=== PATIENT | female | born 1960 | race Caucasian/White ===

== ENCOUNTER 2023-03-22 13:00 | Outpatient (RCR) | payer OTHER, SELFPAY | END 2023-04-19 16:05 | disposition home or self-care (01) | PROVIDERS: PCP Family Medicine; Visit Provider Student in an Organized Health Care Education/Training Program | DX: M25.562 Pain in left knee (principal); W19.XXXA Unspecified fall, initial encounter; Z51.89 Encounter for other specified aftercare | CPT/HCPCS: 97035; 97110; 97112; 97140; 97161 ==

== ENCOUNTER 2023-12-22 10:35 | Outpatient (CLI) | payer OTHER, SELFPAY ==
--- OUTSIDE RECORDS SUMMARY | 2023-12-22 10:38 | XMS_ITS | Clinical Summary ---
Author Organization [facility] Address [place], [place] [address] Care Team Providers Care Slurry Blender Name Role Phone Bryanna Deng MD Primary Care Provider [phone] Allergies Active Allergy Reactions Criticality Noted Date Comments Latex Rash,Erythema 04/02/2010 Medications Medication Sig Dispensed Refills Start Date End Date Status multivitamin (MVI) tablet Take 1 tablet by mouth once daily. 0 02/24/2016 Active fluticasone (50 mcg per actuation) nasal solution (FLONASE)Indications:A llergic rhinitis due to pollen, unspecified seasonality Inhale 2 Sprays to both nostrils once daily. 48 mL 2 09/08/2021 Active cetirizine (ZYRTEC) 10 mg tablet Take 1 Tablet (10 mg) by mouth once daily. 0 09/29/2021 Active CPAPIndications:ABIGAIL (obstructive sleep apnea) CPAP machine for home use at pressure 5-15 cmw, full face mask x1/3month with a full face cushion x1/mo 1 Each 11 02/16/2023 Active Qvar RediHaler 40 mcg/actuation HFA inhaler Inhale 1 Puff by mouth two times daily. 10/03/2023 Active hydroCHLOROthiazide 25 mg tabletIndications:Prim lissett hypertension Take 1 Tablet (25 mg) by mouth once daily. 90 Tablet 3 10/19/2023 Active montelukast (SINGULAIR) 10 mg tabletIndications:Post -nasal drip Take 1 Tablet (10 mg) by mouth at bedtime. 90 Tablet 3 10/19/2023 Active rosuvastatin (CRESTOR) 20 mg tabletIndications:Mary nary artery calcification Take 1 Tablet (20 mg) by mouth at bedtime. 90 Tablet 3 11/30/2023 Active aspirin (ECOTRIN) 81 mg enteric coated tabletIndications:Mary nary artery calcification Take 1 Tablet (81 mg) by mouth once daily with a meal. 90 Tablet 3 11/30/2023 Active Active Problems Problem Noted Date Diagnosed Date Asymptomatic gallstones 11/30/2023 Angiomyolipoma of left kidney 11/30/2023 Thyroid nodule 11/30/2023 Coronary artery calcification 11/30/2023 ABIGAIL 11/08/2022 AHI-18 12/29/2022 Actinic keratosis 09/15/2022 Wynn angioma 09/15/2022 SK (seborrheic keratosis) 09/15/2022 Primary osteoarthritis of right knee 02/10/2022 Overview: Jan 2022: Dr. Melissa did right knee cortisone injection. Breast mass, right 02/17/2017 Normal cardiac stress test 11/29/2014 Overview: 11/29/2014 Hypertension 01/30/2014 L5-S1 disk protrusion 05/17/2013 Family history of malignant neoplasm of gastrointestinal tract 09/03/2011 Overview: Colonoscopy 08/2011 normal repeat in 5 years Colonoscopy 08/2016 polyp repeat in 5 years Colonoscopy 01/2022 normal, repeat in 5 years Achilles tendonitis 02/26/2010 Primary osteoarthritis of both first carpometaca rpal joints 02/26/2010 Overview: 2011: [facility] joint injections by Dr. Whitten. June 2015: bilateral [facility] Joint injections by Dr. Melissa. Feb 2016: repeat bilateral [facility] Joint injections: bilateral 90 % improvement at 2 weeks. Pain benefit for right lasted over 9 months. Left lasted 6-7 months. November 2015: repeat left only [facility] Joint injection. November 2016: Repeat left [facility] joint injection: very good benefit great than 2 weeks post injection. Jan 2017: Repeat Right [facility] Joint thumb injection. July 2017: Repeat left [facility] joint injection. Hand pain 02/17/2009 Esophageal reflux 08/22/2008 Other acne 07/22/2006 Overview: sees Dr. Stearns Resolved Problems Problem Noted Date Diagnosed Date Resolved Date Back pain 02/17/2009 05/17/2013 Plantar fascial fibromatosis 02/01/2008 02/26/2010 Encounters Date Type Department Care Team Description 12/02/2023 9:45 AM CDT Ancillary Procedure [facility] [address] [facility] [place] [address] 12/02/2023 Telephone [facility] [address] [place] [address] Bryanna Deng MD Referral 12/01/2023 Travel 11/30/2023 1:10 PM CDT Office Visit [facility] [address] [place] [address] Bryanna Deng MD Results 11/30/2023 Travel 11/26/2023 Telephone [facility] [address] [place] [address] Bryanna Deng MD 11/08/2023 7:30 AM CDT Ancillary Procedure [facility] [address] [place] [address] 11/08/2023 Telephone [facility] [address] [place] [address] Bryanna Deng MD Follow Up 11/08/2023 Travel 10/19/2023 7:55 AM CDT Office Visit [facility] [address] [place] [address] Bryanna Deng MD Derm Problem (Mole on right side, bra line) 10/19/2023 Travel 10/06/2023 Transcribe Orders [facility] [address] [place] [address] Gregg Kearns MD from Last 3 Months Immunizations Name Administration Dates Next Due COVID-19 vaccine (Moderna 100mcg/0.5mL) MIMI GILES 10/08/2021,03/31/2021,08/29/2020,2020 COVID-19 vaccine (Moderna 50mcg/0.5mL) 12YO+ BIVALENT PF, MDV 03/04/2022 Influenza, IIV3 (Age >=3 years) 02/05/2013,04/09,01/29/2010 Influenza, IIV4 02/07/2023, 2,01/27/2021,2019,02/15/2019,02/13/2018,02/01/2017,1 ,02/25/2015 Td, Preservative Free (age > = 7 Years) 02/07/2023,10/28/2005 Tdap 11/21/2012 Zoster (Shingrix-RZV, recombinant) 12/08/2018, Family History Medical History Relation Name Comments Cancer Father colon and prost ate Diabetes Father Hypertension Father Cancer-breast Maternal Aunt several aunts Cancer-breast Maternal Grandmother Cancer Mother skin Heart Disease Mother chf; mitral va lve replaced Hypertension Mother Other Mother Parkinson's Psychiatric illness Mother depressi on Stroke Mother Cancer Paternal Uncle uncle-colon Cancer-breast Sister Relation Name Status Comments Father Alive Maternal Aunt Maternal Grandmother Mother (Age 66) medical co mplication with surgery Paternal Uncle Sister Social History Tobacco Use Types Packs/Day Years Used Date Smoking Tobacco: Former Cigarettes 0.5 7 0 05/16/1973 - 05/16/1980 Smokeless Tobacco: Never Tobacco Cessation:Counseling Given: Yes Alcohol Use Standard Drinks/Week Comments Yes 0 (1 standard drink = 0.6 oz pur e alcohol) daily 1-2 Humiliation, Afraid, Rape, and Kick questionnair e Answer Date Recorded Fear of Current or Ex-Partner No Emotionally Abused No 10/03/2018 Physically Abused No 10/03/2018 Sexually Abused No 10/03/2018 PHQ-2 Answer Date Recorded PHQ-2 TOTAL SCORE 0 12/17/2021 [facility] [employer] [facility] [employer] - Occupational Stress Questionnaire Answer Date Recorded Feeling of Stress Not at all 10/03/2018 Exercise Vital Sign Answer Date Recorde d Days of Exercise per Week 0 days 2018 Minutes of Exercise per Session 0 min 10/03/2018 Social Connections Answer Date Recorded Frequency of Communication with Friends and Fami ly 0 02/06/2023 Financial Resource Strain Answer Date R ecorded Difficulty of Paying Living Expenses 3 02/06/2023 Difficulty of Paying Living Expenses Not on file 02/06/2023 Food Insecurity Answer Date Recorded Worried About Running Out of Food in the Last Ye ar 1 02/06/2023 Transportation Needs Answer Date Record ed Lack of Transportation (Medical) 1 02/06/2023 Housing Stability Answer Date Recorded Unable to Pay for Housing in the Last Year 1 02/06/2023 Sex and Gender Information Value Date Recorded Sex Assigned at Not on file Gender Identity Not on file Sexual Orientation Not on file Obstetrics History Para Term AB IAB SAB Ectopic Multiple Livin g Live Births 4 4 Date Outcome GA Total Labor Labor/2nd/3rd Weight Sex Type Anes PTL Araceli A1 A5 Name Clin Last Filed Vital Signs Vital Sign Reading Time Taken Comments Blood Pressure 118/82 11/30/2023 1:07 PM CDT Pulse 76 11/30/2023 1:07 PM CDT Temperature 37.3 ??C (99.1 ??F) 11/21/2021 9:18 AM CD T Respiratory Rate 18 11/21/2021 9:18 AM CDT Oxygen Saturation 97% 11/30/2023 1:07 PM CDT Inhaled Oxygen Concentration - - Weight 100.2 kg (220 lb 12.8 oz) 11/30/2023 1:07 PM CDT Height 165.1 cm (5' 5) 12/28/2022 9:22 AM CDT Body Mass Index 36.74 12/28/2022 9:22 AM CDT Plan of Treatment Upcoming Encounters Date Type Department Care Team (Late st Contact Info) Description 01/23/2024 3:00 PM CDT Office Visit [facility] [address] [place] [phone] Gregg Kearns MD [address] [place] [id number] Health Maintenance Due Date Last Done Comments Depression screening for age 12+ 12/17/2022 12/17/2021, 12/31/2020, 10/04/2018, Additional history exists BMI (ht and wt on same day) for age 18+ 12/29/2023 12/28/2022, 10/26/2022, 09/15/2022, Additional history exists Influenza for age 50-64 01/15/2024 02/08/20 23, 03/04/2022, 01/27/2021, Additional history exists Mammogram for age 45-75 02/10/2024 02/10/20 23, 01/07/2022, 01/02/2021, Additional history exists Colonoscopy through age 75 02/04/202702/04, 02/04/2022, 02/04/2022, Additional history exists Lipids for age 45-75 11/29/2028 11/30/2023, 09/15/2022, 09/08/2021, Additional history exists Tetanus booster 02/07/2033 02/07/2023, 07/0 01/2013, 10/28/2005 Tdap Completed 11/21/2012 Hepatitis C screening for age 18-79 Completed 08/09/2016 Zoster (shingles) series for age 50+ Completed 12/08/2018, 10/03/2018 HIV for age 15-65 Completed 09/15/2022 COVID-19 vaccine series Completed 03/05/20, 03/04/2022, 10/08/2021, Additional history exists Pneumococcal series for age 6-64 Aged Out No longer eligible based on patient's age to complete this topic Procedures Procedure Name Priority Date/Time Associated Diagnosis Comments US THYROID/PARATHYROID Routine 12/02/2023 9:50 AM CDT Thyroid nodule LIPID PANEL W REFLEX MEASURED LDL Routine 11/30/2023 1:50 PM CDT Coronary artery calcification TSH Routine 11/30/2023 1:50 PM CDT Thyroid nodule CT CHEST WO Routine 11/08/2023 7:35 AM CDT Chronic cough URINALYSIS MICROSCOPIC Routine 10/19/2023 8:45 AM CDT Asymptomatic microscopic hematuria UA W/ SEDIMENT EXAM REFLEXED PER CRITERIA Routine 10/19/2023 8:45 AM CDT Asymptomatic microscopic hematuria HEMOGLOBIN A1C SCREENING Routine 10/19/2023 8:41 AM CDT Prediabetes BASIC METABOLIC PANEL Routine 10/19/2023 8:41 AM CDT Hypertension PATH TISSUE EXAM Routine 10/19/2023 8:21 AM CDT Non-healing skin lesion XR MAMMO BILAT SCREENING Routine 02/09/2023 8:21 AM CDT Visit for screening mammogram LC HIV-1/O/2, 4TH GENERATION Routine 09/15/2022 8:04 AM CDT Screening for HIV (human immunodeficiency virus) COLONOSCOPY 02/04/2022 8:01 AM CDT History of colon polyps Polyp of colon, unspecified part of colon, unspecified type Family history of colon cancer ANTI HCV Routine 08/09/2016 8:42 AM CDT Need for hepatitis C screening test from Last 3 Months or Most Recently Relevant to Health Maintenance Results * US THYROID/PARATHYROID (12/02/2023 9:50 AM CDT) Anatomical Region Laterality Modality THYROID Ultrasound 12/02/2023 2:06 PM CDT Impressions 12/02/2023 2:06 PM CDT 5.1 cm TR 4 nodule right thyroid lobe. FNA recommended. Dictated by Rashaun Wing MD @ 12/02/2023 2:06:28 PM (Electronically Signed) Narrative 12/02/2023 2:06 PM CDT For Patients: ??As a result of the 21st Century Cures Act, medical imaging exams and procedure reports are released immediately into your electronic medical record. ??You may view this report before your referring provider. ??If you have questions, please contact your health care provider. INDICATION: Thyroid nodule COMPARISON: CT chest 11/08/2023 TECHNIQUE: Platt scale and color Doppler images were acquired of the thyroid gland. FINDINGS: Isthmus measures 4.7 millimeters. Solid slightly heterogeneous nodule right thyroid lobe measures 5.1 x 4.1 x 3.1 cm. The right lobe measures 6.6 x 3.6 x 4.1 cm and the left lobe measures 5.8 x 2.3 x 1.8 cm in size. The color Doppler images demonstrate normal vascularity. There is no evidence of cervical lymphadenopathy or parathyroid mass. Procedure Note Rashaun Wing MD - 12/02/2023 For Patients: As a result of the Cures Act, medical imagingexams and procedure reports are released immediately into your electronicmedical record. You may view this report before your referring provider.If you have questions, please contact your health care provider. INDICATION: Thyroid nodule COMPARISON: CT chest 11/08/2023 TECHNIQUE: Platt scale and color Doppler images were acquired of the thyroid gland. FINDINGS: Isthmus measures 4.7 millimeters. Solid slightly heterogeneous noduleright thyroid lobe measures 5.1 x 4.1 x 3.1 cm. The right lobe measures6.6 x 3.6 x 4.1 cm and the left lobe measures 5.8 x 2.3 x 1.8 cm in size.The color Doppler images demonstrate normal vascularity. There is noevidence of cervical lymphadenopathy or parathyroid mass. IMPRESSION: 5.1 cm TR 4 nodule right thyroid lobe. FNA recommended. Dictated by Rashaun Wing MD @ 12/02/2023 2:06:28 PM (Electronically Signed) Bryanna Deng MD * (ABNORMAL) LIPID PANEL W REFLEX MEASURED LDL (11/30/2023 1:50 PM CDT) CHOLESTEROL,TOTAL 251(H) 100 - 199 mg/dL 12/01/2023 4:00 AM CDT [facility] [employer] Comment: Cholesterol, Total Reference Ranges Desirable <200 mg/dL Borderline 200-239 mg/dL High >=240 mg/dL TRIGLYCERIDES 163(H) <150 mg/dL 12/01/2023 4:00 AM CDT [facility] HDL CHOLESTEROL 67 >40 mg/dL 4:00 AM CDT [facility] NON-HDL CHOLESTEROL 184(H) <145 mg/dl 12/01/2023 4:00 AM CDT [facility] CHOL/HDL RATIO 3.75 <4.50 12/01/2023 4:00 AM CDT [facility] LDL CHOLESTEROL 151(H) <=130 mg/dL 12/01/2023 4:00 AM CDT [facility] VLDL CHOLESTEROL 33(H) <=30 mg/dL 12/01/2023 4:00 AM CDT [facility] PROVIDER ORDERED STATUS RANDOM 12/01/2023 4:00 AM CDT [facility] Blood BLOOD SPECIMEN / Unknown Venipuncture / Unknown 11/30/2023 1:50 PM CDT 11/30/2023 1:52 PM CDT Bryanna Deng MD CHEMISTRY Performing Organization Address [facility] de Phone Number [facility] [address] [place] [id number], [place] * TSH (11/30/2023 1:50 PM CDT) TSH 2.64 0.27 - 4.20 uIU/mL 12/01/2023 4:00 AM CDT [facility] Blood BLOOD SPECIMEN / Unknown Venipuncture / Unknown 11/30/2023 1:50 PM CDT 11/30/2023 1:52 PM CDT Narrative [facility] - 12/01/2023 4:00 AM CDT In Adults, TSH values between 5.00 and 10.00 uIU/ml do not necessarily indicate the presence of Hypothyroidism. Correlation with clinical findings such as presence of goiter and/or Thyroperoxidase (TPO) Antibody may be helpful. For more information please refer to [place] 2004; 291: 228-238. Bryanna Deng MD CHEMISTRY Performing Organization Address [facility] Co de Phone Number [facility] [address] [place] [phone], [place] * CT CHEST WO (11/08/2023 7:35 AM CDT) Anatomical Region Laterality Modality CHEST, THORAX, HEART Computed To mography 11/08/2023 12:0 6 PM CDT Impressions 11/08/2023 12:06 PM CDT 1. No acute findings. 2. Few small sub 6 millimeter calcified noncalcified pulmonary nodules. If the patient is high risk for lung cancer, an optional 12 month follow-up CT may be performed per Fleischner society guidelines. 3. Mild coronary artery calcification. 4. Enlarged right thyroid lobe with possible nodules measuring up to 3 centimeters. Recommend further assessment with thyroid ultrasound. 5. Small layering gallstones or hyperdense gallbladder sludge. 6. 11 millimeter left renal angiomyolipoma. Please note that all CT scans at this facility use dose modulation, iterative reconstruction, and/or weight-based dosing when appropriate to reduce radiation dose to as low as reasonably achievable. Dictated by Iam Hayes MD @ 11/08/2023 12:06:16 PM (Electronically Signed) Narrative 11/08/2023 12:06 PM CDT For Patients: ??As a result of the Century Cures Act, medical imaging exams and procedure reports are released immediately into your electronic medical record. ??You may view this report before your referring provider. ??If you have questions, please contact your health care provider. INDICATION: Chronic cough. TECHNIQUE: CT chest without contrast. COMPARISON: None. FINDINGS: Lungs and pleura: Scattered sub 6 millimeter calcified noncalcified pulmonary nodules. For example, 4 millimeter right upper lobe calcified granuloma (series 10, image 67) and 5 millimeter average diameter triangular left lower lobe juxta fissural nodule (series 10 image 52). ??No pleural effusions, pleural thickening, or pneumothorax. Heart and vasculature: Heart size is normal. Thoracic aorta and pulmonary artery are normal in caliber. Mild coronary artery calcification. Lymph nodes/mediastinum: No mediastinal, hilar, or axillary adenopathy. Neck base: Enlarged right thyroid gland with possible nodules measuring up to 3 centimeters Chest wall: No masses. Upper abdomen: Small layering gallstones or hyperdense sludge. 11 millimeter oval fat density lesion in the upper pole of the left kidney, compatible with an angiomyolipoma. Bones: Mild thoracic spondylosis. Procedure Note Iam Hayes MD - 11/08/2023 For Patients: As a result of the 21st Century Cures Act, medical imagingexams and procedure reports are released immediately into your electronicmedical record. You may view this report before your referring provider.If you have questions, please contact your health care provider. INDICATION: Chronic cough. TECHNIQUE: CT chest without contrast. COMPARISON: None. FINDINGS: Lungs and pleura: Scattered sub 6 millimeter calcified noncalcifiedpulmonary nodules. For example, 4 millimeter right upper lobe calcifiedgranuloma (series 10, image 67) and 5 millimeter average diametertriangular left lower lobe juxta fissural nodule (series 10 image 52). Nopleural effusions, pleural thickening, or pneumothorax. Heart and vasculature: Heart size is normal. Thoracic aorta and pulmonaryartery are normal in caliber. Mild coronary artery calcification. Lymph nodes/mediastinum: No mediastinal, hilar, or axillary adenopathy. Neck base: Enlarged right thyroid gland with possible nodules measuring upto 3 centimeters Chest wall: No masses. Upper abdomen: Small layering gallstones or hyperdense sludge. 11millimeter oval fat density lesion in the upper pole of the left kidney,compatible with an angiomyolipoma. Bones: Mild thoracic spondylosis. IMPRESSION: 1. No acute findings. 2. Few small sub 6 millimeter calcified noncalcified pulmonary nodules. Ifthe patient is high risk for lung cancer, an optional 12 month follow-upCT may be performed per Fleischner society guidelines. 3. Mild coronary artery calcification. 4. Enlarged right thyroid lobe with possible nodules measuring up to 3centimeters. Recommend further assessment with thyroid ultrasound. 5. Small layering gallstones or hyperdense gallbladder sludge. 6. 11 millimeter left renal angiomyolipoma. Please note that all CT scans at this facility use dose modulation,iterative reconstruction, and/or weight-based dosing when appropriate toreduce radiation dose to as low as reasonably achievable. Dictated by Iam Hayes MD @ 11/08/2023 12:06:16 PM (Electronically Signed) Gregg Kearns MD CT * URINALYSIS MICROSCOPIC (10/19/2023 8:45 AM CDT) RBC 0-2 0-2, None Seen /HPF 10/19/2023 9:16 AM CDT [facility] WBC 0-2 0-2, 3-5, None Seen /HPF 10/19/2023 9:16 AM CDT [facility] BACTERIA Few None Seen, Rare, Few Bacteria/H PF 10/19/2023 9:16 AM CDT [facility] EPITHELIAL CELLS Few None Seen, Few Epi/HPF 10/19/2023 9:16 AM CDT [facility] Urine URINE SPECIMEN / Unknown Non-Blood / Unknown 10/19/2023 8:45 AM CDT 10/19/2023 8:45 AM CDT Bryanna Deng MD URINE [facility] [address] [place] [address], * (ABNORMAL) UA W/ SEDIMENT EXAM REFLEXED PER CRITERIA (10/19/2023 8:45 AM CDT) COLOR Yellow Yellow Color 10/19/2023 9:16 AM CDT [facility] CLARITY Clear Clear Clarity 10/19/2023 9:16 AM CDT [facility] SPECIFIC GRAVITY,URINE 1.020 1.010, 1.015, 1.020, 1.025 10/19/2023 9:16 AM CDT [facility] PH,URINE 5.5 6.0, 7.0, 8.0, 5.5, 6.5, 7.5, 8.5 10/19/2023 9:16 AM CDT [facility] UROBILINOGEN, QUALITATIVE Normal Normal EU/dl 10/19/2023 9:16 AM CDT [facility] PROTEIN, URINE Negative Negative mg/dL 10/19/2023 9:16 AM CDT [facility] GLUCOSE, URINE Negative Negative mg/dL 10/19/2023 9:16 AM CDT [facility] KETONES,URINE Negative Negative mg/dL 10/19/2023 9:16 AM CDT [facility] BILIRUBIN,URI NE Negative Negative 10/19/2023 9:16 AM CDT [facility] OCCULT BLOOD,URINE Trace(A) Negative 10/19/2023 9:16 AM CDT [facility] NITRITE Negative Negative 10/19/2023 9:16 AM CDT [facility] LEUKOCYTE ESTERASE Trace(A) Negative 10/19/2023 9:16 AM CDT [facility] Urine URINE SPECIMEN / Unknown Non-Blood / Unknown 10/19/2023 8:45 AM CDT 10/19/2023 8:45 AM CDT Bryanna Deng MD URINE Performing Organization Address City/[facility]/ZIP Co de Phone Number [facility] [address] [place] [address], [place] [phone] * HEMOGLOBIN A1C SCREENING (10/19/2023 8:41 AM CDT) HEMOGLOBIN A1C SCREENING 5.4 <=6.4 % 10/19/2023 5:12 PM CDT [facility] Blood BLOOD SPECIMEN / Unknown Venipuncture / Unknown 10/19/2023 8:41 AM CDT 10/19/2023 8:42 AM CDT Narrative [facility] - 10/19/2023 5:12 PM CDT ? (<5.7%) ?Normal ? (5.7% to 6.4%) ? Indicates prediabetes ? (>=6.5%) ? Confirms diabetes Falsely low levels may be seen with: Recent Transfusion, Recent Significant Blood Loss, Hemolytic Diseases, or Falsely elevated levels may be seen with: Untreated Anemias, Splenectomy Bryanna Deng MD CHEMISTRY [facility] [address] [place] [id number], [place] * (ABNORMAL) BASIC METABOLIC PANEL (10/19/2023 8:41 AM CDT) SODIUM 139 136 - 145 mmol/L 10/19/2023 4:00 PM T [facility] POTASSIUM 4.3 3.5 - 5.1 mmol/L 10/19/2023 4:00 PM T [facility] CHLORIDE 101 98 - 107 mmol/L 10/19/2023 4:00 PM T [facility] CO2,TOTAL 27 22 - 29 mmol/L 10/19/2023 4:00 PM T [facility] ANION GAP 11 5 - 18 10/19/2023 4:00 PM T [facility] GLUCOSE 102(H) 70 - 99 mg/dL 10/19/2023 4:00 PM T [facility] CALCIUM 9.9 8.8 - 10.2 mg/dL 10/19/2023 4:00 PM T [facility] BUN 14 8 - 23 mg/dL 10/19/2023 4:00 PM T [facility] CREATININE 0.91(H) 0.50 - 0.90 mg/dL 10/19/2023 4:00 PM T [facility] BUN/CREAT RATIO 15 10 - 20 4:00 PM T [facility] eGFR 71(L) >90 mL/min/1.7 3m2 10/19/2023 4:00 PM [facility] Comment:As of 2021, eG FR is calculated by the CKD-EPI creatinine equation without race adjustment. ??eGFR can be influenced by muscle mass, exercise, and diet. ??The reported eGFR is an estimation only and is only applicable if the renal function is stable. Blood BLOOD SPECIMEN / Unknown Venipuncture / Unknown 10/19/2023 8:41 AM CDT 10/19/2023 8:42 AM CDT Bryanna Deng MD CHEMISTRY [facility] [address] [place] [address], * PATH TISSUE EXAM (10/19/2023 8:21 AM CDT) Case Report Pathology Report ?Case: [id number] ? Authorizing Provider: ??Bryanna Deng MD ? Collected: ? 10/19/2023 0821 ? Ordering Location: ? [facility] ?? Received: ?10/19/2023 0934 ? Clinic ? Pathologist: ? Huan Renteria MD ? Specimen: ?Skin Shave, skin shave pigmented open lesion on right lateral chest, 6 mm ? 10/20/2023 12:36 PM CDT [facility] Final Diagnosis SKIN, RIGHT LATERAL CHEST, BIOPSY: 1. Seborrheic keratosis 2. Negative for malignancy 10/20/2023 12:36 PM CDT [facility] Clinical Information Skin shave pigmented open lesion on right lateral chest, 6 mm. 10/20/2023 12:36 PM CDT [facility] Gross Description A) Received in formalin, labeled with the patient's name and date of , is a 0.8 x 0.7 x 0.1 cm skin biopsy. There is a 0.7 x 0.6 cm slightly raised variegated brown lesion. The specimen is inked red, trisected and entirely submitted in one cassette. EKW 10/19/2023 10/20/2023 12:36 PM CDT [facility] Microscopic Description The final diagnosis is based on microscopic examination of appropriate sections of all specimens. The epidermis shows acanthosis and hyperkeratosis . No significant atypia is seen. The presence of ??red ink is confirmed on tissue sections. 10/20/2023 12:36 PM CDT [facility] Additional Information Interpreted at [facility] - [address] [facility] [address], [place] [address] 10/20/2023 12:36 PM CDT [facility] Other SPECIMEN FROM SKIN / Unknown Non-Blood / Unknown 10/19/2023 8:21 AM CDT 10/19/2023 9:34 AM CDT Bryanna Deng MD PATHOLOGY/CYTOLOGY Performing Organization Address City/State/[facility] Co de Phone Number [facility] [address] [place] [address], * XR MAMMO BILAT SCREENING (02/09/2023 8:21 AM CDT) Anatomical Region Laterality Modality BREASTS, Breast Left, Breast Right Bilateral Mammography Impressions 02/09/2023 2:13 PM CDT ??There is no radiographic evidence for malignancy. ??Recommend annual mammograms. MAMMOGRAM ASSESSMENT: ??ACR 1 Negative PATIENTS: You will also receive a letter with your examination results in an easy to read format. ??If you have questions about your results, please contact your referring provider. Narrative 02/09/2023 2:13 PM CDT For Patients: As a result of the Century Cures Act, medical imaging exams and procedure reports are released immediately into your electronic medical record. You may view this report before your referring provider. If you have questions, please contact your health care provider. XR MAMMO BILAT SCREENING [[id number]] CLINICAL HISTORY: ??This is an asymptomatic 62 y.o. patient. INDICATION FOR EXAM: Mammogram Screening. TECHNIQUE: CC & MLO views were obtained. ??This study was evaluated with the assistance of Computer-Aided Detection. COMPARISON FILM: Yes 01/07/22 [employer] [facility] 01/02/21 [facility] FINDINGS: ??The breasts have scattered areas of fibroglandular density. There are no dominant masses, suspicious micro calcifications or areas of architectural distortion. Bryanna Deng MD MAMMO * LC HIV-1/O/2, 4TH GENERATION (09/15/2022 8:04 AM CDT) HIV Scr 4th Gen Non Reactive Non Reactive 09/18/2022 4:08 AM CDT [facility] Comment: HIV Negative HIV-1/HIV-2 antibodies and HIV-1 p24 antigen were NOT detected. There is no laboratory evidence of HIV infection. Blood BLOOD SPECIMEN / Unknown Venipuncture / Unknown 09/15/2022 8:04 AM CDT 09/15/2022 8:05 AM CDT Narrative [facility] - 09/18/2022 4:08 AM CDT Performed at: ??01 - [facility] [address] [place] [address], [place], [place] ??[id number] Crop Quantitative Geneticist: Beto Zee MD, Phone: ??[phone] Bryanna Deng MD LABORATORY [facility]) [facility] [place] [address], * COLONOSCOPY (02/04/2022 8:01 AM CDT) 02/04/2022 8:01 AM CDT Narrative Transcriptions Sergey Lawrence MD - 02/04/2022 9:39 AM CDT Patient Name: Milady Tilley Procedure Date: 02/04/2022 Gender: Female Date of : 1960 Admit Type: Outpatient Procedure: Colonoscopy Proceduralist: Sergey Lawrence MD , Mei Cox (Nurse), Alison Gill, RN (Nurse) Referring MD: Bryanna Deng Indications/Pre-Op Diagnosis: High risk colon cancer surveillance:Personal history of adenoma less than 10 mm in size, Family history of colon cancer in a first-degree relative before age 60 years Medications: Fentanyl 100 micrograms IV, Midazolam 3 mgIV, The level of sedation administered wasmoderate Procedure Description: The patient had risks, benefits and alternatives explained to andgave informed consent. The patient had a stable cardiopulmonary status and judged an adequate candidate for conscious sedation. The Colonoscope was passed through the anus and advanced to thececum, identified by appendiceal orifice and ileocecal valve. Thecolonoscopy was performed without difficulty. The patient tolerated the procedure well. The quality of the bowel preparation was good. The ileocecal valve, appendiceal orifice, and rectum were photographed. Complications: No immediate complications. Estimated Blood Loss & Specimen: Estimated blood loss: none. Specimen collected - Yes and sent to Laboratory Findings: The perianal and digital rectal examinations were normal. A 3 mm polyp was found in the sigmoid colon. The polyp was semi-pedunculated. The polyp was removed with a cold snare. Resection and retrieval were complete. The exam was otherwise without abnormality. Impressions/Post-Op Diagnosis: - One 3 mm polyp in the sigmoid colon, removed with a cold snare. Resected and retrieved. - The examination was otherwise normal. Recommendation: - Patient has a contact number available for emergencies. The signsand symptoms of potential delayed complications were discussed with the patient. Return to normal activities tomorrow. Written discharge instructions were provided to the patient. - Resume previous diet. - Continue present medications. - Await pathology results. - Repeat colonoscopy in 5 years for surveillance. Moderate Sedation: A time out was performed before the procedure. Moderate (conscious) sedation was administered by the endoscopy nurse and supervised bythe endoscopist. The following parameters were monitored: oxygensaturation, heart rate, blood pressure, EKG, CO2, respiratory rate, adequacy of pulmonary ventilation and reponse to care. Please refer to the patient's medical record flowsheets and nursing notes for moderate sedation details. Total physician intraservice time was 16 minutes. Sergey Lawrence MD 02/04/2022 9:39:03 AM This report has been signed electronically. Note Initiated On: 02/04/2022 8:01 AM Procedure Code(s): --- Professional --- 67092, Colonoscopy, flexible; with removalof tumor(s), polyp(s), or other lesion(s) bysnare technique Diagnosis Code(s): --- Professional --- Z86.010, Personal history of colonicpolyps D12.5, Benign neoplasm of sigmoid colon Z80.0, Family history of malignant neoplasmof digestive organs CPT copyright 2020 [employer]. All rights reserved. The codes documented in this report are preliminary and upon overedge machine operator reviewmay be revised to meet current compliance requirements. Scope In: 9:19:27 AM Scope Withdrawal Time 0 hours 9 minutes 13 seconds Scope Out: 9:33:24 AM Sergey Lawrence MD PROCEDURE ORD * ANTI HCV [72752.2] (08/09/2016 8:42 AM CDT) HEPATITIS C ANTIBODY Non-Reacti ve Non-Reacti ve 08/09/2016 3:29 PM CDT [facility] Blood BLOOD SPECIMEN / Unknown Venipuncture / Unknown 08/09/2016 8:42 AM CDT 08/09/2016 8:42 AM CDT Narrative [facility] - 08/09/2016 3:29 PM CDT Antibodies to HCV not detected; does not exclude the possibility of exposure to HCV. Tami Bernabe MD SEND OUTS [facility] [address] [place] [address], [place] from Last 3 Months or Most Recently Relevant to Health Maintenance Advance Directives Documents on File Type Date Recorded Patient Service Loss Control Consultant Expl anation Power of Pelt Shearer 11/18/2020 JESUS SCHWARTZ AND KAM TILLEY, 11/18/2020 Care Teams Slurry Blender Relationship Specialty Start Date End Date Bryanna Deng MD [address] [place], [place] [id number] PCP - General Family Practice 02/17/17
--- NOTE | 2023-12-22 11:15 | CRLHL7_ITS ---
For Patients: As a result of the Century Cures Act, medical imaging exams and procedure reports are released immediately into your electronic medical record. You may view this report before your referring provider. If you have questions, please contact your health care provider. INDICATION : Right thyroid nodule. TECHNIQUE : Ultrasound-guided fine needle aspiration of thyroid nodule. Comparison : 12/02/2023 FINDINGS : PROCEDURE: After the informed consent and time-out, multiple fine needle aspirations were obtained from the thyroid nodule. Fine needle performed. 25 gauge needles were used. Lidocaine was used for local anesthesia. The preliminary cytology was adequate for interpretation. Real-time imaging was used for guidance and needle placement. Post imaging ultrasound demonstrates no immediate complication. IMPRESSION : Successful fine needle aspiration of right thyroid lobe nodule. Dictated by Rashaun Wing MD @ 12/22/2023 12:59:52 PM (Electronically Signed)
== END 2023-12-22 10:36 | disposition home or self-care (01) ==
LOC: US 10:37
PROVIDERS: PCP Family Medicine; Visit Provider Family Medicine
DX: E04.1 Nontoxic single thyroid nodule (principal)
CPT/HCPCS: 10005; 88173

== ENCOUNTER 2024-09-20 08:58 | Outpatient (CLI) | payer OTHER, SELFPAY ==
--- NOTE | 2024-09-20 09:15 | CRLHL7_ITS ---
For Patients: As a result of the Century Cures Act, medical imaging exams and procedure reports are released immediately into your electronic medical record. You may view this report before your referring provider. If you have questions, please contact your health care provider. INDICATION : Right thyroid nodule. TECHNIQUE : Ultrasound-guided fine needle aspiration of thyroid nodule. COMPARISON : 08/28/2024 FINDINGS : PROCEDURE: After the informed consent and time-out, multiple fine needle aspirations were obtained from the thyroid nodule. Fine needle performed. 25 gauge needles were used. Lidocaine was used for local anesthesia. The preliminary cytology was adequate for interpretation. Real-time imaging was used for guidance and needle placement. Post imaging ultrasound demonstrates no immediate complication. IMPRESSION : Successful fine needle aspiration of right thyroid nodule. Dictated by Rashaun Wing MD @ 09/20/2024 1:36:22 PM (Electronically Signed)
== END 2024-09-20 08:59 | disposition home or self-care (01) ==
LOC: US 09:01
PROVIDERS: PCP Family Medicine; Visit Provider Student in an Organized Health Care Education/Training Program
DX: D34 Benign neoplasm of thyroid gland (principal)
CPT/HCPCS: 10005; 76942; 88173

== ENCOUNTER 2025-03-12 06:06 | Day surgery (SDC) | payer OTHER, SELFPAY ==
[2025-03-12] VITALS (19 sets, daily range): BP systolic 97–148; BP diastolic 53–89; PULSE 57–80; RESP 14–18; TEMP 36.2–36.7; O2SAT 91–99; BMI 37.8
[2025-03-12] MEDS: LACTATED RINGERS 1000 ML 1,000 ML 100 ML IV ×2 (06:30→08:27)
[2025-03-12] MEDS: SODIUM CHLORIDE 0.9 % (FLUSH) 10 ML SYRINGE IVF (07:01)
[2025-03-12] MEDS: CELECOXIB 200 MG CAPSULE PO (07:10)
[2025-03-12] MEDS: ACETAMINOPHEN 500 MG TABLET 1000 MG PO (07:10)
[2025-03-12] MEDS: OXYCODONE (CR) 10 MG TAB.ER.12H PO (07:10)
[2025-03-12] MEDS: MIDAZOLAM HCL 1 MG/ML inj IVP (07:15)
--- NOTE | 2025-03-12 07:18 | SUR.PREOP ---
TIME?OUT:?711 PT/RN/MDA?VERIFICATION?OF?SURGICAL?SITE,?PROCEDURE,?AND?CONSENT OBTAINED?PRIOR?TO?INVASIVE?PROCEDURE.
[2025-03-12] MEDS: TRANEXAMIC ACID 100 MG/ML INJ 1000 MG IV (07:38)
--- NOTE | 2025-03-12 07:53 | SUR.OPER ---
PATIENT QUESTIONS ANSWERED SATISFACTORILY PREOPERATIVELY.? PATIENT BROUGHT TO OR #3 PER CART AFTER ADMINISTRATION OF A BLOCK.? Patient positioned supine on OR #3 bed.? The perioperative?team supported arms bilaterally on arm boards.? Final approval of positioning by surgeon.?
--- NOTE | 2025-03-12 08:41 | CRLHL7_ITS ---
For Patients: As a result of the Cures Act, medical imaging exams and procedure reports are released immediately into your electronic medical record. You may view this report before your referring provider. If you have questions, please contact your health care provider. Indication: Postop Technique: Two views right knee Findings/Impression: Hardware from a right total knee arthroplasty is in satisfactory position. Bone alignment is normal. No sign of acute fracture. Postop changes are within normal limits. Dictated by Rashaun Wing MD @ 03/12/2025 10:09:24 AM (Electronically Signed)
--- NOTE | 2025-03-12 08:43 | PM.ORPRC ---
Procedure Note Date of procedure: 03/12/25 Procedure: PREOPERATIVE DIAGNOSIS: Right knee osteoarthritis POSTOPERATIVE DIAGNOSIS: Right knee osteoarthritis NAME OF OPERATION: Right total knee arthroplasty SURGEON: Elio Mcbride MD MANAGER REPORTING: FRANKO Jose ANESTHESIA: Spinal ESTIMATED BLOOD LOSS: 0 mL COMPLICATIONS: None SPECIMENS: None DRAINS: None PREOPERATIVE ANTIBIOTICS: Ancef 2g, antibiotic impregnated cement IMPLANTS: 1. J&J Attune # 5 narrow posterior stabilized femur 2. Revision CRS #4 fixed-bearing tibia, 14 mm x 50 mm cemented stem 3. # 5 posterior stabilized, 5 mm fixed-bearing polyethylene 4. 35 patella INDICATIONS: The patient is a 64-year-old with a longstanding history of severe, unrelenting right knee pain secondary to end-stage (grade IV) right knee osteoarthritis. Despite appropriate nonoperative management, including activity modification, anti-inflammatories, ndqb-yzr-pggfril pain medication, bracing, physical therapy, and injections they continue to have pain and disability. Operative intervention was offered. The risks, benefits and expected outcomes were discussed in detail. These included but were not limited to: Infection, bleeding, injury to blood vessel or nerve, venous thromboembolism. All questions were answered to their satisfaction. Use of an assistant construction superintendent was necessary throughout the case for patient positioning and safety, soft tissue retraction, and closure. PROCEDURE: Spinal anesthesia was administered. The patient was placed supine on the operating table. The assistant construction superintendent made sure the patient was positioned appropriately. The lower extremity was prepped and draped in the usual sterile fashion. The limb was exsanguinated with the Sergey bandage. The pneumatic tourniquet was inflated to 225mmHg. A standard anterior incision was made with the knee in flexion. Subcutaneous dissection was sharply taken through fascial layer #1. Full-thickness medial and lateral flaps were elevated. The assistant construction superintendent retracted the soft tissues and protected them throughout the case. A standard subvastus approach was made. The patella was subluxed. The infrapatellar fat pad was preserved. The menisci and cruciate ligaments were sharply d?brided. Marginal osteophytes were d?brided with the rongeur. The drill was used to penetrate the femoral canal. The intramedullary femoral guide was placed for a 5-degree valgus cut, removing 10 mm off the distal femur. The saw was used to make the cut. Whitesides line and the trans epicondylar axis were marked. The femoral sizing guide was pinned onto the distal femur. Three degrees of external rotation nicely parallels the transepicondylar axis. Pins were placed for posterior referencing. The four-in-one cutting guide was pinned onto the distal femur. The anterior, posterior, and chamfer cuts were made. The assistant construction superintendent protected the collateral ligaments. The box cutting guide was pinned. The box cuts were made. The boxed trial was placed and was an excellent fit. Drill holes for the lugs were made. Attention was then turned to the proximal tibia. The intramedullary tibial guide was placed for a neutral varus/valgus cut with 3 degrees of posterior slope, removing 2 mm based off the medial tibial surface. The assistant construction superintendent protected the collateral ligaments and the neurovascular bundle. The saw was used to make the cut. Trial components were placed. The knee was nicely balanced in both flexion and extension. The trial components were removed. The tray was placed in appropriate rotation, parallel to our tibial cutting pins. It was pinned by the assistant construction superintendent and the drill x2 was used. The stemmed tibial trial was placed. The punch was used. The tray was removed. The punch was used again. A bone plug was placed in the femoral canal. Attention was then turned to the patella. [place] patellar thickness was 24 mm. The lobster claw resection guide was used with the 9.5 mm yenny. The saw was used to make the cut. Drill holes were made by the assistant construction superintendent. The trial was placed and was an excellent fit. Cancellous surfaces were irrigated with pulse lavage and thoroughly dried by the assistant construction superintendent. We cemented the tibial component, then the femoral component. We impacted the 5 mm polyethylene onto the tibial tray. The knee was brought into full extension. We then cemented the patellar component. Excessive cement was removed. The cement was allowed to harden. The knee was taken through a range of motion and was found to be nicely balanced in both flexion and extension. The patella tracks centrally. The assistant construction superintendent did a three minute dilute Betadine solution soak. The assistant construction superintendent irrigated the wound with 3 liters of normal saline via pulse lavage. The assistant construction superintendent reapproximated the extensor mechanism with #1 Vicryl in an interrupted mmhtfm-ur-vslah fashion. The assistant construction superintendent then ran the extensor mechanism with a #1 PDO Stratafix. The assistant construction superintendent closed the subcutaneous tissues with a 3-0 Stratafix and the skin with a running 3-0 Stratafix in a subcuticular fashion. The assistant construction superintendent placed a dry dressing. Sponge and needle counts were correct x2. The patient tolerated the procedure well. There were no apparent complications. They were carefully transferred to the hospital bed and taken to the postanesthesia care unit in satisfactory condition. PLAN: The patient will be mobilized with physical therapy. Aspirin will be used for DVT prophylaxis. They will be discharged to home once medically appropriate.
[2025-03-12] MEDS: LACTATED RINGERS 1000 ML 1,000 ML 75 ML IV (08:45)
--- NOTE | 2025-03-12 09:20 | P.ANES_ITS ---
Anesthesia Charges Start Date/Time Anesthesia Start Date: 03/12/25 Anesthesia Start Time: 07:19 Stop Date/Time Anesthesia Stop Date: 03/12/25 Anesthesia Stop Time: 09:17 Coding CPT Codes CPT Codes: ANESTH KNEE ARTHROPLASTY - 26067 ([id number]) P3 - PATIENT W/SEVERE SYS DISEASE, QK - FILE CLERK 2-4 CNCRNT ANES PROC
--- NOTE | 2025-03-12 09:20 | W.ANESCHARGE ---
Anesthesia Charges Start Date/Time Anesthesia Start Date: 03/12/25 Anesthesia Start Time: 07:19 Stop Date/Time Anesthesia Stop Date: 03/12/25 Anesthesia Stop Time: 09:17 Coding CPT Codes CPT Codes: ANESTH KNEE ARTHROPLASTY - 26320 ([id number]) P3 - PATIENT W/SEVERE SYS DISEASE, QK - HOUSEKEEPER AND LAUNDRY ASSISTANT 2-4 CNCRNT ANES PROC
--- NOTE | 2025-03-12 09:23 | P.NB_ITS ---
Nerve Block Nerve Block Time Seen by Provider: 07:15 Date Seen: 03/12/25 Type of block requested by surgeon for post-operative analgesia: geniculars Side: right Time out performed: Yes Verification of patient name: Yes Verification of date of : Yes Site marking: site marked Name of person performing procedure: Joaquin Continuous monitoring Was continuous monitoring of O2 sat, B/P, panel monitor, recorded every 15 minutes?: Yes Procedure Checklist: sterile prep, needles and gloves Ultrasound guided. Images saved: Yes Medications given in 5ml increments after negative aspiration: Marcaine %: 0.25 mL: 9 Needle gauge: 25 Patient tolerated procedure well: Yes Block Charges Block Charge (with Pro Fee): Genicular Nerve Block
--- NOTE | 2025-03-12 09:24 | P.ANES_ITS ---
Anesthesia Charges Start Date/Time Anesthesia Start Date: 03/12/25 Anesthesia Start Time: 07:19 Stop Date/Time Anesthesia Stop Date: 03/12/25 Anesthesia Stop Time: 09:17 Coding CPT Codes CPT Codes: ANESTH KNEE ARTHROPLASTY - 76777 ([id number]) QK - SPOT BILLING CLERK 2-4 CNCRNT ANES PROC, QX - ASSISTANT AT SURGERY SVC W/ MD MED DIRECTION, P3 - PATIENT W/SEVERE SYS DISEASE
--- NOTE | 2025-03-12 09:24 | P.NB_ITS ---
Nerve Block Nerve Block Time Seen by Provider: 07:15 Date Seen: 03/12/25 Type of block requested by surgeon for post-operative analgesia: adductor canal Side: right Time out performed: Yes Verification of patient name: Yes Verification of date of : Yes Site marking: site marked Name of person performing procedure: Joaquin Continuous monitoring Was continuous monitoring of O2 sat, B/P, gambling monitor, recorded every 15 minutes?: Yes Procedure Checklist: sterile prep, needles and gloves Ultrasound guided. Images saved: Yes Medications given in 5ml increments after negative aspiration: Marcaine %: 0.25 mL: 15 Needle gauge: 20 Precedex (mcg): 25 Patient tolerated procedure well: Yes Block Charges Block Charge (with Pro Fee): Femoral Nerve Use of Ultrasound Machine for Block: Yes- US Guidance/pain block
--- NOTE | 2025-03-12 09:24 | W.ANESCHARGE ---
Anesthesia Charges Start Date/Time Anesthesia Start Date: 03/12/25 Anesthesia Start Time: 07:19 Stop Date/Time Anesthesia Stop Date: 03/12/25 Anesthesia Stop Time: 09:17 Coding CPT Codes CPT Codes: ANESTH KNEE ARTHROPLASTY - 45229 ([id number]) QK - WRAP TURNER 2-4 CNCRNT ANES PROC, QX - CONTRACT CLERK [employer] SVC W/ MD MED DIRECTION, P3 - PATIENT W/SEVERE SYS DISEASE
== END 2025-03-12 14:25 | disposition home or self-care (01) ==
LOC: OR 06:07
PROVIDERS: PCP Family Medicine; Visit Provider Orthopaedic Surgery
PROC: (CPT 27447; principal; 2025-03-12 07:15)
DX: M17.11 Unilateral primary osteoarthritis, right knee (principal); G89.18 Other acute postprocedural pain; G47.33 Obstructive sleep apnea (adult) (pediatric); I10 Essential (primary) hypertension
CPT/HCPCS: 27447; 01402; 64447; 64454; 73560; 76942; 97110; 97116; 97162; A9270; C1776; J0665; J0690; J2250; J2704; J3010; J7120

== ENCOUNTER 2025-03-18 11:50 | Outpatient (CLI) | payer OTHER, SELFPAY | END 2025-03-18 11:51 | disposition home or self-care (01) | PROVIDERS: PCP Family Medicine; Visit Provider Physician Assistant | DX: Z96.651 Presence of right artificial knee joint (principal) | CPT/HCPCS: 85025; 85651; 86140 ==